=== PATIENT | female | born 1980 | race American Indian/Alaskan Native ===

== ENCOUNTER 2020-08-25 15:41 | Emergency (ER) | payer MEDICAID, OTHER ==
[2020-08-25 15:58] VITALS: BP 153/96
[2020-08-25] MEDS ORDERED: IBUPROFEN 600 MG TAB PO ONE ×2 (19:21→19:23)
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
== END 2020-08-25 20:23 | disposition home or self-care (01) ==
LOC: ED 15:41
DX: S39.012A Strain of muscle, fascia and tendon of lower back, initial encounter (principal); S86.811A Strain of other muscle(s) and tendon(s) at lower leg level, right leg, initial encounter; F32.89 Other specified depressive episodes; F41.9 Anxiety disorder, unspecified; Z91.018 Allergy to other foods; Z98.890 Other specified postprocedural states; Z79.899 Other long term (current) drug therapy; V89.2XXA Person injured in unspecified motor-vehicle accident, traffic, initial encounter; Y93.89 Activity, other specified; Y92.410 Unspecified street and highway as the place of occurrence of the external cause; Y99.8 Other external cause status
CPT/HCPCS: 99282